=== PATIENT | female | born 1995 | race Caucasian/White ===

== ENCOUNTER 2020-12-27 08:00 | Inpatient (IN) ==
[2020-12-27] MEDS ORDERED: Lidocaine 1% 20 ML MDV INFILT PRN (08:42)
[2020-12-27] MEDS ORDERED: *HR* Nalbuphine 10 MG/ML AMPUL IV PRN (08:42)
[2020-12-27] MEDS ORDERED: Famotidine 20 MG/2 ML VIAL IVP PRN (08:42)
[2020-12-27] MEDS ORDERED: Naloxone 0.4 MG/ML INJ IVP PRN (08:42)
[2020-12-27] MEDS ORDERED: Metoclopramide 10 MG/2 ML VIAL IVP PRN (08:42)
[2020-12-27 09:03] LABS: Basophils % 0.4 %; Eosinophils # 0.1 K/mcL (0.0-0.6); Eosinophils % 0.8 %; Hematocrit 40.1 % (35.3-44.9); Hemoglobin 12.5 g/dL (11.5-15.4); Immature Granulocytes % 0.4 % (0-4); Lymphocytes # 1.5 K/mcL (0.6-4.6); Lymphocytes % 18.4 %; Mean Corpuscular HGB Conc 31.2 g/dL (31.6-35.5); Mean Corpuscular Hemoglobin 27.1 pg (28.0-33.3); Mean Platelet Volume 11.6 fL (9.4-12.4); Monocytes # 0.6 K/mcL (0.0-1.3); Monocytes % 6.8 %; Neutrophils # 6.2 K/mcL (1.6-8.9); Platelet Count 182 K/mcL (140-400); Red Blood Count 4.61 M/mcL (3.82-4.97); Segmented Neutrophils % 73.2 %; White Blood Count 8.4 K/mcL (4.3-11.1)
[2020-12-27 09:56] LABS: Adenovirus Not Detected (Not Detect); Bordetella Pertussis Not Detected (Not Detect); Chlamydophila pneumoniae Not Detected (Not Detect); Coronavirus 229E Not Detected (Not Detect); Coronavirus HKU1 Not Detected (Not Detect); Coronavirus NL63 Not Detected (Not Detect); Coronavirus OC43 Not Detected (Not Detect); Human Metapneumovirus Not Detected (Not Detect); Human Rhinovirus/Enterovirus Not Detected (Not Detect); Influenza A Subtype 2009 H1 Not Detected (Not Detect); Influenza B Not Detected (Not Detect); Mycoplasma pneumoniae Not Detected (Not Detect); Parainfluenza Virus 1 Not Detected (Not Detect); Parainfluenza Virus 2 Not Detected (Not Detect); Parainfluenza Virus 3 Not Detected (Not Detect); Parainfluenza Virus 4 Not Detected (Not Detect); Respiratory Syncytial Virus Not Detected (Not Detect); SARS-CoV-2 Not Detected (Not Detect)
[2020-12-27] MEDS ORDERED: EPHEDrine 50 MG/ML VIAL IVP PRN (10:31)
[2020-12-27] MEDS ORDERED: miSOPROStoL 100 MCG TABLET PO STA (10:41)
[2020-12-27] MEDS ORDERED: Epidural Premix (fent/bupiv) 110 ML EP SCH (10:45)
[2020-12-27 10:48] LABS: Amphetamine Screen,Urine Negative ng/mL (Cutoff=1000); Barbiturate Screen,Urine Negative ng/mL (Cutoff=200); Benzodiazepines Screen,Urine Negative ng/mL (Cutoff=200); Cannabinoid Screen,Urine Negative ng/mL (Cutoff = 50); Cocaine Screen,Urine Negative ng/mL (Cutoff= 300); Opiate Screen,Urine Negative ng/mL (Cutoff=300); Phencyclidine Screen,Urine Negative ng/mL (Cutoff=25)
[2020-12-27] MEDS ORDERED: Ringers Solution, Lactated 1,000 ML ONE (11:30)
[2020-12-27] MEDS: Ringers Solution, Lactated 1,000 ML IVC SCH ×2 (11:34→16:38)
[2020-12-27] MEDS ORDERED: Ondansetron 4 MG/2 ML VIAL IVP PRN (11:46)
[2020-12-27] MEDS ORDERED: Ondansetron 4 MG/2 ML VIAL ONE (11:47)
[2020-12-27] MEDS ORDERED: Oxytocin 20 units/ LR 1000 mL 20 UNIT/1,000 ML BAG IVC SCH (15:45)
[2020-12-27] MEDS ORDERED: Ropivacaine/PF 0.2% 20 ML VIAL ONE (21:45)
[2020-12-27] MEDS ORDERED: *HR* FentaNYL (PF) 100 MCG/2 ML VIAL ONE (21:45)
[2020-12-28] MEDS: Ringers Solution, Lactated 1,000 ML IVC SCH (01:40)
[2020-12-28] MEDS ORDERED: Oxytocin 20 units/ LR 1000 mL 20 UNIT/1,000 ML BAG IVC SCH (10:29)
[2020-12-28] MEDS ORDERED: Acetaminophen 325 MG TABLET PO PRN (10:29)
[2020-12-28] MEDS ORDERED: Methylergonovine 0.2 MG/ML AMPUL IM ONE (16:31)
[2020-12-28] MEDS: Ibuprofen 600 MG TABLET PO PRN (19:29)
[2020-12-29 08:02] VITALS: BP 103/60
[2020-12-29] MEDS: Ibuprofen 600 MG TABLET PO PRN (08:43)
[2020-12-29] MEDS ORDERED: Prenatal Vit/FA 1 EACH TABLET PO SCH (09:00)
== END 2020-12-29 10:49 | disposition home or self-care (01) | DRG 768 ==
LOC: 1NENULAB 08:00 → 1NENUOBS 12-28 12:53
PROVIDERS: ADMIT Registered Nurse; ATTEND Registered Nurse